=== PATIENT | female | born 1935 | race Two or more races ===

== ENCOUNTER 2025-05-08 13:55 | Emergency (ER) | payer MEDICAID, OTHER ==
[~2025-05-08] VITALS: Ht 144.8 cm; Wt 44.3 kg
--- NOTE | 2025-05-08 14:29 | ED.PDOC ---
Dov. trauma (HPI) HPI Comments 89 y/o F, with PMHx of ESRD HTN, HLD, and DM presents to the ED for CC of s/p fall injury. Family reports, patient was ambulating out of her door way yesterday (05/07/25) when her walker accidently got caught causing her to have a trip and fall landing on the right side of her face. Following fall, patient c/o pain to her right facial and periorbital regions along with right lower extremity pain; patient has visible swelling to her right eye and right lower leg. Patient denies blurred vision, headache, or loss of consciousness. No other symptoms or modifying factors are present at this time. 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 Family History Family History: Unknown Social History Smoker: Non-Smoker Alcohol: Denies ETOH Use Drugs: Denies Drug Use Lives In: Home Constitutional: denies: chills, diaphoresis, fatigue, fever, malaise, sweats, weakness, others EENTM: denies: blurred vision, double vision, ear bleeding, ear discharge, ear drainage, ear pain, ear ringing, eye pain, eye redness, hearing loss, mouth pain , mouth swelling, nasal discharge, nose bleeding, nose congestion, nose pain, photophobia, tearing, throat pain, throat swelling, voice changes, others Respiratory: denies: cough, hemoptysis, orthopnea, SOB at rest, shortness of breath, SOB with excertion, stridor, wheezing, others Cardiovascular: denies: chest pain, dizzy spells, diaphoresis, Dyspnea on exertion, edema, irregular heart beat, left arm pain, lightheadedness, palpitations, PND, syncope, others Gastrointestinal: denies: abdomen distended, abdominal pain, blood streaked bowels, constipated, diarrhea, dysphagia, difficulty swallowing, hematemesis, melena, nausea, poor appetite, poor fluid intake, rectal bleeding, rectal pain, vomiting, others Genitourinary: denies: abnormal vagina bleeding, burning, dyspareunia, dysuria, flank pain, frequency, hematuria, incontinence, pain, , vagina discharge, urgency, others Neurological: denies: dizziness, fainting, headache, left sided numbness, left sided weakness, numbness, paresthesia, pre-existing deficit, right sided numbness, right sided weakness, seizure, speech problems, tingling, tremors, weakness, others Musculoskeletal: reports: others (right leg pain, right facial pain); denies: back pain, gout, joint pain, joint swelling, muscle pain, muscle stiffness, neck pain Integumetry: denies: bruises, change in color, change in hair/nails, dryness, laceration, lesions, lumps, rash, wounds, others Allergic/Immunocompromised: denies: Difficulty Healing, Frequent Infections, Hives, Itching, others Hematologic/Lymphatic: denies: anemia, blood clots, easy bleeding, easy bruising, swollen glands, others Endocrine: denies: excessive hunger, excessive sweating, excessive thirst, excessive urination, flushing, intolerance to cold, intolerance to heat, unexplained weight gain, unexplained weight loss, others Psychiatric: denies: anxiety, bipolar disorder, depression, hopeless, panic disorder, schizophrenia, sleepless, suicidal, others All Other Systems: Reviewed and Negative Physical Exam General Appearance: Moderate Distress HEENT: Pharynx Normal, TMs Normal, Other (Ecchymosis to the nasal region and periorbital region with swelling) Neck: Full Range of Motion, Non-Tender, Normal, Normal Inspection Respiratory: Chest Non-Tender, Lungs Clear, No Accessory Muscle Use, No Respiratory Distress, Normal Breath Sounds Cardiovascular: No Edema, No JVD, No Murmur, No Gallop, Normal Peripheral Pulses, Regular Rate/Rhythm Breast Exam: Deferred Gastrointestinal: No Organomegaly, Non Tender, No Pulsatile Mass, Normal Bowel Sounds, Soft Genitalia: Deferred Pelvic: Deferred Rectal: Deferred Extremities: No calf tenderness, Normal capillary refill, No pedal edema Musculoskeletal : Apperance: Normal Neurologic: Alert, behavioral assistant II-XII nml as Tested, Motor Weakness, Normal Affect, Normal Mood, No Sensory Deficits Cerebellar Function: Normal Reflexes: Normal Skin: Dry, Normal Color, Warm Lymphatic: No Adenopathy Was a procedure done? Was a procedure done?: No Differential Diagnosis Multiple Trauma: Closed Head Injury, Fractures X-Ray, Labs, Meds, VS Vital Signs Date Time Temp Pulse Resp B/P (MAP) Pulse Ox O2 Delivery O2 Flow Rate FiO2 05/08/25 13:58 97.6 66 16 154/73 98 97.6 CAT scan of the maxillofacial shows:IMPRESSION: Nasal bone fracture. Right frontal scalp / supraorbital, right orbital preseptal and facial region hematoma/contusion X-ray of the tib-fib region shows no sign of any fracture at this time The patient will be discharged and will follow up with the primary care doctor The patient will return the emergency department's condition worsens. Images Reviewed?: Images reviewed and evaluated by me Time of 1ST Reevaluation: 14:30 Reevaluation 1ST: Unchanged Patient Education/Counseling: Diagnosis, Treatment, Prognosis, Need For Follow Up Family Education/Counseling: Diagnosis, Treatment, Prognosis, Need For Follow Up Departure 1 Departure Time of Disposition: 15:34 Impression: Primary Impression: Nasal fracture Qualified Codes: S02.2XXA - Fracture of nasal bones, initial encounter for closed fracture Additional Impressions: History of fall Blunt head trauma Qualified Codes: S09.8XXA - Other specified injuries of head, initial encounter Contusion of leg Qualified Codes: S80.11XA - Contusion of right lower leg, initial encounter Disposition: 01 HOME / SELF CARE / HOMELESS Condition: Fair Discharged With: Self Critical Care Note Critical Care Time?: No Stability Stability form required: No Heart Score Heart Score: Heart Score Response (Comments) Value History N/A 0 EKG N/A 0 Age N/A 0 Risk Factors N/A 0 Troponin N/A 0 Total 0 I personally scribed for DIALLO MELÉNDEZ MD ([email or web address]) on 05/08/25 at 14:28. Electronically submitted by Mavis Hubbard ([email or web address]). DIALLO MELÉNDEZ MD May 08, 2025 14:28
--- NOTE | 2025-05-08 15:15 | DVH ---
CT MAXILLOFACIAL WITHOUT Indication: fall EXAM DATE: 05/08/2025 02:29 PM COMPARISON: None TECHNIQUE: CT of the maxillofacial without intravenous contrast. RADIATION DOSE: CTDIvol: 56 mGy, DLP: 1472 mGy*cm FINDINGS: Comminuted fracture of the nasal bone. The paranasal sinuses are well pneumatized. Right periorbital/ preseptal /facial region contusion hematoma. Right supraorbital / frontal scalp hematoma. 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 No orbital retrobulbar hematoma . IMPRESSION: Nasal bone fracture. Right frontal scalp / supraorbital, right orbital preseptal and facial region hematoma/contusion
--- NOTE | 2025-05-08 15:24 | DVH ---
CLINICAL INDICATION: fall TECHNIQUE: 2 radiographic views of the right tibia and fibula were obtained. Comparison: None FINDINGS/IMPRESSION: No fracture or dislocation. No radiopaque foreign bodies.
[2025-05-08 16:20] VITALS: BP 114/50; PULSE 78; RESP 16; TEMP 97.6; O2SAT 99
== END 2025-05-08 16:21 | disposition home or self-care (01) ==
LOC: ER 13:55
DX: S02.2XXA Fracture of nasal bones, initial encounter for closed fracture (principal); S80.11XA Contusion of right lower leg, initial encounter; S09.8XXA Other specified injuries of head, initial encounter; E78.5 Hyperlipidemia, unspecified; I12.0 Hypertensive chronic kidney disease with stage 5 chronic kidney disease or end stage renal disease; E11.22 Type 2 diabetes mellitus with diabetic chronic kidney disease; N18.6 End stage renal disease; Z91.81 History of falling; W01.198A Fall on same level from slipping, tripping and stumbling with subsequent striking against other object, initial encounter; Y93.89 Activity, other specified; Y92.89 Other specified places as the place of occurrence of the external cause; Y99.8 Other external cause status
CPT/HCPCS: 70486; 73590